=== PATIENT | male | born 1975 | race Two or more races ===

== ENCOUNTER 2021-01-06 19:16 | Emergency (ER) | payer OTHER ==
[~2021-01-06] VITALS: Ht 170.2 cm; Wt 83.9 kg
[2021-01-06] MEDS ORDERED: VERAPAMIL ER120 MG (19:45)
== END 2021-01-06 21:47 | disposition home or self-care (01) ==
LOC: ER 19:16
DX: S50.02XA Contusion of left elbow, initial encounter (principal); S70.01XA Contusion of right hip, initial encounter; W07.XXXA Fall from chair, initial encounter; Y93.89 Activity, other specified; Y92.59 Other trade areas as the place of occurrence of the external cause; Y99.8 Other external cause status